=== PATIENT | male | born 1960 | race Caucasian/White ===

== ENCOUNTER 2019-11-23 00:43 | Emergency (ER) | payer SELFPAY ==
[2019-11-23] MEDS ORDERED: HYDROcodone/Acetaminophen 5/325 mg Tablet ONE (01:12)
[2019-11-23] MEDS ORDERED: Doxycycline 100 MG CAP PO SCH (01:30)
== END 2019-11-23 01:24 | disposition home or self-care (01) ==
LOC: ERS 00:43
DX: K11.20 Sialoadenitis, unspecified (principal); Z71.6 Tobacco abuse counseling; F17.210 Nicotine dependence, cigarettes, uncomplicated
CPT/HCPCS: 99406

== ENCOUNTER 2021-10-02 09:36 | Outpatient (CLI) | payer OTHER | END 2021-10-02 09:37 | disposition home or self-care (01) | LOC: BICCT 09:36 | PROVIDERS: ATTEND Family Medicine | DX: Z12.2 Encounter for screening for malignant neoplasm of respiratory organs (principal); F17.210 Nicotine dependence, cigarettes, uncomplicated; Z71.89 Other specified counseling | CPT/HCPCS: 71271 ==